=== PATIENT | female | born 1985 | race Caucasian/White ===

== ENCOUNTER 2018-07-18 19:47 | Emergency (ER) | payer SELFPAY ==
[~2018-07-18] VITALS: Ht 157.5 cm; Wt 56.7 kg
[2018-07-18 19:50] VITALS: BP 98/64
--- NOTE | 2018-07-18 19:50 | NUR ---
PATIENT BIB [facility] TO ER CHAIR [facility]
--- NOTE | 2018-07-18 20:32 | NUR ---
Dr. Bettencourt evaluating patient.
--- NOTE | 2018-07-18 20:50 | NUR ---
Patient taken to [facility] via wheelchair by mavis, accompanied by [facility].
[2018-07-18 21:00] LABS: HEMATOCRIT 29.1 % (36-48); HEMOGLOBIN 8.4 g/dL (12.0-16.0); MEAN CORPUSCULAR HEMOGLOBIN 17 pg (27-31); MEAN CORPUSCULAR HGB CONC 29 g/dL (33-37); MEAN CORPUSCULAR VOLUME 59.8 fL (80-94); PLATELET COUNT (AUTO) 512 K/uL (140-450); RED BLOOD CELL COUNT(AUTO) 4.86 MIL/uL (4.20-5.40)
[2018-07-18 21:10] LABS: APPEARANCE,URINE CLEAR (CLEAR); BILIRUBIN,URINE NEGATIVE (NEGATIVE); BLOOD, URINE NEGATIVE (NEGATIVE); COLOR,URINE YELLOW (YELLOW); LEUKOCYTE ESTERASE ,URINE NEGATIVE (NEGATIVE); NITRITE, URINE NEGATIVE (NEGATIVE); PH,URINE 5.5 (5.0-9.0); UGLUCOSE NEGATIVE (NEGATIVE)
--- NOTE | 2018-07-18 21:16 | NUR ---
Patient returned from [facility]. RN re-evaluating patient at bedside.
[2018-07-18 21:21] LABS: EOSINOPHILS % (MANUAL) 1 % (0-4); LYMPHOCYTES % (MANUAL) 15 % (20-46); MONOCYTES % (MANUAL) 2 % (5-12)
[2018-07-18 21:24] LABS: RBC,URINE 0-5 (RARE) /HPF (0-5); WBC,URINE 0-5 (RARE) /HPF (0-5)
[2018-07-18 22:15] VITALS: BP 98/61
--- NOTE | 2018-07-18 22:15 | NUR ---
Patient discharged with v/s stable. Written and verbal after care instructions given and explained. Patient alert, oriented and verbalized understanding of instructions. Police with in custody. All questions addressed prior to discharge. ID band removed. Patient advised to follow up with PMD. Rx of [employer] MULTI + DHA SOFTGEL given. Patient educated on indication of medication including possible reaction and side effects. Opportunity to ask questions provided and answered.
== END 2018-07-18 22:15 ==
LOC: MED 19:47
DX: O20.0 Threatened abortion (principal); Z3A.01 Less than 8 weeks gestation of pregnancy; V89.2XXA Person injured in unspecified motor-vehicle accident, traffic, initial encounter; Y93.89 Activity, other specified; Y92.411 Interstate highway as the place of occurrence of the external cause; Y99.8 Other external cause status
CPT/HCPCS: 36415; 76817; 81001; 81025; 84702; 85025; 86900; 86901; 99285; Q0092